=== PATIENT | female | born 1960 | race Caucasian/White ===

== ENCOUNTER 2018-02-04 06:16 | Day surgery (SDC) | payer OTHER ==
[2018-02-03 10:06] LABS: Absolute Lymphocytes (CBC) 3.4 K/uL (0.7-4.9); Absolute Monocytes 0.7 K/uL (0.1-1.3); Absolute Neutrophil 6.9 K/uL (1.8-8.0); Eosinophils % 1.6 % (0-4.4); Lymphocytes % 30.1 % (15.3-44.8); MCH 30.4 pg (27.0-35.0); MCV 89.3 fL (80-100); MPV 8.6 fL (7.6-11.3); Monocytes % 5.9 % (3.3-12.3); RBC Red Blood Cell Count 4.15 M/uL (3.86-4.86)
--- NOTE | 2018-02-03 13:49 | PREOPHP ---
Date of Admission: 02/03/2018 History Of Present Illness: Ms. Sanz is a 57-year-old female, who is admitted [facility] for hysteroscopy and D and C for postmenopausal bleeding. She was 1, para 1-0-0-1, who is status post menopause. She had been on bio-identical injectable hormones until a couple of years ago. This was discontinued because of some bleeding issues, but she has continued to have intermitt ent bleeding since that time. Endometrial biopsy in the office has shown disordered proliferative en dometrium with no evidence of hyperplasia. Because she has continued to bleed, further evaluation wi th hysteroscopy and D and C is scheduled. Past Medical History: Includes 1 prior delivery, prior colonoscopy, prior diagnosis of hepatitis A i n 1987. Current Medications: Include Cymbalta 60 mg per day, Adderall 20 mg q.a.m. Allergies: SHE HAS NO KNOWN ALLERGIES. Social History: She does not smoke. Family History: Significant for elevated blood pressure in father and brother. Heart disease in her father and brother. Mother had lung cancer. Review of Systems: She reports no recent cough, cold, recent nausea or vomiting. She denies any breast lumps. She micha es any bowel or bladder issues. Physical Examination: General: Reveals female, in no apparent distress. Neck: Supple without adenopathy or thyromegaly. Lungs: Clear. Cardiac: Regular rate and rhythm without murmurs. Breasts: Without masses. Abdomen: Nontender without organosplenomegaly. Pelvic: Normal female external genitalia. Vaginal shows some mild atrophic changes, small amount of blood. Bimanual, no abnormalities. Extremities: No cyanosis, clubbing, or edema. Impression: Postmenopausal bleeding. Plan: The patient will undergo hysteroscopy and D and C for evaluation of bleeding. Risks are discu ssed and she has signed operative permit in my presence. TONI/NAVNEET Voice ID: [id number]
[2018-02-04] MEDS ORDERED: Ringers Lactate 1,000 ML IV ONE (06:33)
[2018-02-04] MEDS ORDERED: SILVER NITRATE 1 APPL TOP ONE (06:49)
[2018-02-04] MEDS ORDERED: MIDAZOLAM HCL 2 MG/2 ML INJ ONE (07:06)
[2018-02-04] MEDS ORDERED: FENTANYL CITR 100 MCG/2 ML ONE (07:08)
[2018-02-04] MEDS ORDERED: LIDOCAINE 2% MPF 5 ML VIAL ONE (07:08)
[2018-02-04] MEDS ORDERED: PROPOFOL 200 MG/20 ML VIAL IV ONE (07:08)
[2018-02-04] MEDS ORDERED: KETOROLAC 30 MG/ML INJ ONE (07:32)
--- NOTE | 2018-02-04 07:57 | P.BOP ---
Preoperative diagnosis: Post menopausal bleeding Postoperative diagnosis: same, endometrial polyp Primary procedure: hysteroscopy, polyp removal, D&C Estimated blood loss: Less than 10ml Findings: endometrial polyp Anesthesia: General Complications: None Transferred to: Recovery Room
--- NOTE | 2018-02-04 19:34 | DS ---
Date of Discharge: 02/04/2018 Final Hospital Discharge Diagnosis: Postmenopausal bleeding. Complications: None. Procedures: Hysteroscopy, excision of endometrial polyps, curettage of uterine endometrium. Hospital Course: The patient is a 57-year-old female, admitted with postmenopausal bleedin g with a benign outpatient endometrial biopsy. She underwent hysteroscopy and curettage of the endom etrium, which revealed probable endometrial polyps with the pathology report pending. The patient wa s dismissed to be seen back in my office in 2 weeks with usual post D and C activity restrictions. L ab work obtained included an admission hemoglobin and hematocrit of 12.6 and 37.0. TONI/NAVNEET Voice ID: [id number] Report ID: [id number]
--- NOTE | 2018-02-04 19:34 | OP ---
Date of Procedure: 02/04/2018 Surgeon: Dionicio Woods MD Anesthesiologist: Diony Godfrey CRNA and Dr. Yogi Lebron. Preoperative Diagnosis: Postmenopausal bleeding. Postoperative Diagnosis: Postmenopausal bleeding plus endometrial polyp. Procedure: Hysteroscopy, endometrial polyp removal, dilatation and curettage of uterine endometrium. Description Of Procedure: After satisfactory level of general anesthesia was obtained, the patient w as prepped and draped in the usual fashion for vaginal surgery. A bivalve speculum was placed in the vagina, cervix visualized and grasped with single-tooth tenaculum. Hysteroscope was introduced. Vi sualization revealed with a few adhesions, but also multiple polyps. These were excised followed by exploration with forceps, removal of tissue and with a curettage of the endometrium with Sherrell curet te. The patient was then awakened, taken to recovery room in satisfactory condition. Estimated Total Blood Loss: Less than 10 mL. TONI/NAVNEET Voice ID: [id number] Report ID: [id number]
== END 2018-02-04 09:16 | disposition home or self-care (01) ==
LOC: OR 06:16
PROVIDERS: ATTEND Specialist
PROC: 0UB98ZX Excision of Uterus, Via Natural or Artificial Opening Endoscopic, Diagnostic (ICD-10-PCS; principal; 2018-02-04 07:30)
DX: N95.0 Postmenopausal bleeding (principal); N84.0 Polyp of corpus uteri; Z80.1 Family history of malignant neoplasm of trachea, bronchus and lung; Z82.49 Family history of ischemic heart disease and other diseases of the circulatory system
CPT/HCPCS: 36415; 85025; 88305; J2250; J3010

== ENCOUNTER 2018-11-18 10:21 | Day surgery (SDC) | payer OTHER ==
[2018-11-15 11:53] LABS: Absolute Lymphocytes (CBC) 2.5 K/uL (0.7-4.9); Absolute Monocytes 0.4 K/uL (0.1-1.3); Absolute Neutrophil 4.3 K/uL (1.8-8.0); Basophils % 0.9 % (0-1.3); Eosinophils % 2.1 % (0-4.4); Hematocrit 37.4 % (36.0-45.0); Lymphocytes % 33.2 % (15.3-44.8); MPV 9.3 fL (7.6-11.3); Monocytes % 5.8 % (3.3-12.3); RBC Red Blood Cell Count 4.16 M/uL (3.86-4.86)
[2018-11-15 11:55] LABS: Urine Appearance CLEAR; Urine Bilirubin NEGATIVE (NEG); Urine Blood NEGATIVE (NEG); Urine Color YELLOW; Urine Glucose NEGATIVE (NEG); Urine Protein NEGATIVE (NEG); Urine Specific Gravity 1.015 (1.005-1.030); Urine Urobilinogen 0.2 mg/dL (0.2-1.0)
[2018-11-15 12:05] LABS: Urine Microscopic Reflex ORDER UMIC
[2018-11-15 12:27] LABS: Urine Bacteria 20-50 /HPF (<20); Urine Culture Reflex Order REFLEXED; Urine RBC <5 /HPF (NONE SEEN)
[~2018-11-18 10:21] MED LIST: IBUPROFEN 200 MG TAB PO ONE
[2018-11-18] MEDS ORDERED: Ringers Lactate 1,000 ML IV ONE ×2 (10:42→14:17)
[2018-11-18] MEDS ORDERED: SCOPOLAMINE HYDROBROMIDE PATCH TD ONE (10:42)
[2018-11-18] MEDS ORDERED: PROPOFOL 200 MG/20 ML VIAL IV ONE (11:02)
[2018-11-18] MEDS ORDERED: ROCURONIUM 50 MG/5 ML VIAL IV ONE (11:03)
[2018-11-18] MEDS ORDERED: GLYCOPYRROLATE 0.2 MG/ML SYR ONE (11:04)
[2018-11-18] MEDS ORDERED: LIDOCAINE 2% MPF 5 ML VIAL ONE (11:05)
[2018-11-18] MEDS ORDERED: FENTANYL CITR 250 MCG/5 ML ONE (11:06)
[2018-11-18] MEDS ORDERED: ONDANSETRON 4 MG/2 ML VIAL ONE (11:09)
[2018-11-18] MEDS ORDERED: NEOSTIGMINE 1 MG/ML -10 ML VIAL ONE (11:10)
[2018-11-18] MEDS ORDERED: DEXAMETHASONE 4 MG/ML VIAL ONE (11:10)
[2018-11-18] MEDS: CEFAZOLIN/SWI 1gm 2 GM/20 ML SYR ONE ×2 (11:18→12:42)
[2018-11-18] MEDS ORDERED: NA CHLORIDE 0.9% 1,000 ML ONE (12:13)
[2018-11-18] MEDS ORDERED: MIDAZOLAM HCL 2 MG/2 ML INJ ONE (12:36)
[2018-11-18] MEDS ORDERED: MORPHINE 10 MG/ML VIAL ONE (13:35)
[2018-11-18] MEDS ORDERED: LABETALOL 20 MG/4ML SYRINGE IV ONE (13:45)
[2018-11-18] MEDS ORDERED: LIDOCAINE 1.5% W/EPI AMP 5 ML ONE (13:53)
[2018-11-18] MEDS ORDERED: MEPERIDINE HCL 25 MG/0.5 ML ONE (16:06)
[2018-11-18] MEDS ORDERED: HYDROCODONE/APAP 5/325 MG TAB ONE (17:00)
[2018-11-18] MEDS ORDERED: IBUPROFEN 200 MG TAB PO ONE (17:00)
[2018-11-18] MEDS ORDERED: IBUPROFEN 400 MG TAB ONE (17:01)
--- NOTE | 2018-11-20 08:27 | OP ---
Date of Procedure: 11/17/2018 Surgeon: Krystyna Engle MD Economic Analyst: Deanne Galindo. Preoperative Diagnoses: Postmenopausal bleeding, fibroids, leiomyomata, and right Bartholin's gland cyst. Postoperative Diagnoses: Postmenopausal bleeding, fibroids, leiomyomata, right Bartholin's gland cys t, and right Bartholin's gland chronic abscess. Procedures Performed: 1.Total laparoscopic hysterectomy, bilateral salpingo-oophorectomy, and pelvic washings. 2.Right Bartholin's gland drainage and irrigation with marsupialization and biopsy. Anesthesia: General. Estimated Blood Loss: Minimal. Specimens: Uterus, bilateral tubes, and ovaries, pelvic washings, and right Bartholin's gland cyst w all. Complications: None Drains: None. Condition: Stable. Findings: Right Bartholin's gland was enlarged. On incision, there was purulent drainage that was d rained; however, there was no surrounding erythema or induration representing a chronic cyst with pur ulent material. Other than the sigmoid adhesions, just at the level of the infundibulopelvic ligament below the natur al attachment of the sigmoid to the lateral wall and the pelvic brim. No other abnormalities were se en in the pelvic cavity. The uterus was enlarged, multifibroid in nature. Both tubes and ovaries we re unremarkable. The patient is a 58-year-old, who was referred to me by Dr. Woods for uterine fibroids. She had her last menstrual period in 2012. She was evaluated and sampled for bleeding about 3 years ago. Th en 3 years later in 2018, she had another episode of bleeding where she had hysteroscopy, polypectomy , and D and C. Negative pathology for atypia or malignancy. She was found to have uterine fibroids. No other etiology was found since she had recurrent postmenopausal bleeding again over the past 2 y ears. She was referred for a hysterectomy. The right Bartholin's gland cyst was causing bulge symptoms, and therefore the patient wanted to take care of this. It was significant, about 4 to 5 cm in size. She was consented for a total laparoscopic hysterectomy, bilateral salpingo-oophorectomy, and pelvic washings. Repeat sampling was not performed since this was sampled 10 months ago. Description Of Procedure: After consenting the patient appropriately, she was brought to the OR, and 2 g of Ancef were given. She was placed in a supine fashion on the operating table. After general anesthesia was given, she was placed in a dorsal lithotomy position using Xu stirrups. Arms were tucked by the side. Time-out done, SCDs started, and thigh-high stockings were placed. Pelvic exam performed. Uterus found to be multifibroid, about 8 to 10 weeks' size. No adnexal masses were noted . The Bartholin's gland cyst was noted as above. It was more into the labial side rather than to the p osterior-inferior aspect. Abdomen, vulva, vagina, and perineum were prepped and draped in a sterile fashion. Young was placed to drain the bladder and cysto tubing was attached to a bag that emptied 300 mL for retrograde fillin g, and this was placed on the floor for drainage. A large VCare was introduced into the uterus and f ixed in place. This area was then draped. A 1 cm infraumbilical incision was made with a scalpel using the open laparoscopy technique. Fascia was incised and tagged on both sides. S retractor was placed into the vaginal cavity after it was bl untly entered. After the Krista was fixed in place, the site of entry was checked and was unremarkab le. Upper abdominal surface was completely unremarkable as well. The patient was placed in a Trende [place] position. The omentum was unremarkable. Uterus was multifibroid. Both ovaries and tubes we re normal. Posterior cul-de-sac was free. Both ureters were traced from the pelvic brim to the uret ade tunnel and there was no distortion. A 10 mm suprapubic and 5 mm left lower quadrant ports were placed under direct vision. Pelvic washings were performed and handed off for permanent pathology af ter survey was completed. Then, started the hysterectomy. The left round ligament was taken down, a nd the anterior broad ligament was opened up all the way to the opposite side, creating a bladder fla p. Then, the mesosalpinx tube and utero-ovarian ligament were taken down. Posterior broad ligament was opened up all the way to the left uterosacral broad ligament, taken down, and the vessels skeleto nized. On the opposite side, a similar dissection was performed, and once the bladder flap was conne cted, the VCare cup was well visualized. Monopolar was used to open the vesicovaginal space and diss ect the bladder inferiorly. The vessels on both sides were isolated, and medially incision was made with a monopolar to create a window, and then bipolar LigaSure was used for taking down the uterine artery and vein, and the cardi nal ligaments, and the descending branches. Once all these were taken down on the right side, then t he left side similar dissection was performed without any problems. Then, circumferential colpotomy with a monopolar hook blade. The specimen was detached and pulled out through the vagina. There was some difficulty fitting the uterus through the vagina gently. It was manipulated and brought out. Vaginal occluder bulb was placed. The vagina was closed with 0 Vicryl and 5-0 interrupted sutures, 2 simple at both corners, and 3 [id number] in the middle including the uterosacral distal part t hat was from the rectovaginal septum and the posterior vaginal epithelial lining, and then anteriorly the vaginal epithelial lining in the precervical fascia. All the stitches were tied. The re was excellent support as well as closure. No evidence of any electrical, mechanical, or thermal i njury to the ureters. The tubes and ovaries were removed with the help of the LigaSure, and retrieve d through the suprapubic port. Thorough irrigation and suction were performed, and hemostasis was se cured completely. The gas was desufflated, all the trocars were pulled, and the abdominal gas was pushed out through th e Krista. Krista was removed. The 0 Vicryl sutures on each side were tied together to close the inc ision at the umbilicus, and inferiorly a simple suprapubic stitch was placed to the fascia with 0 Matt ryl to close this defect. All the skin incisions were closed with 4-0 Vicryl interrupted. After draping the Bartholin's gland appropriately, the vaginal occluder bulb and the Young were remov ed. Then, 1% lidocaine mixed with 1:200,000 epinephrine was taken and 10 cc was injected in the supe rior and inferior plane. I could not make this incision on the inner aspect of the labia minora comp letely close to the hymenal opening; however, the Bartholin's gland opening seemed to be displaced so mewhat laterally due to the expansion of the Bartholin's gland cyst in the way that I did it. So, th e gland opening was extended superiorly and inferiorly after the lip was injected. Then, once the cy st wall was reached, by taking down all the layers underneath, about 5 cm incision was made. The cys t wall was incised vertically with a 15 blade, and purulent drainage was seen, and this was drained o ut completely. It was definitely a Bartholin's gland cyst. The lining was sampled with the help of Metzenbaum scissors. A 3-0 Vicryl interrupted were placed in a circumferential fashion marsupializin g the gland to the skin, and the inferior most part subcutaneous tissues were closed together, and th en the marsupialization was completed with interrupted sutures. The vagina was packed with the help of quarter-inch Nu Gauze. Bandage was placed. Young was removed. Instrument, needle, and sponge co unts were done and were correct at the end of the case. The patient tolerated the procedure well. S he will follow up with me in 1 week. LEE ANN/NAVNEET Voice ID: [id number] Report ID: [id number]
== END 2018-11-18 19:30 | disposition home or self-care (01) ==
LOC: OR 10:21
PROVIDERS: ATTEND Obstetrics & Gynecology
PROC: 0UT74ZZ Resection of Bilateral Fallopian Tubes, Percutaneous Endoscopic Approach (ICD-10-PCS; 2018-11-18)
PROC: 0U9L0ZZ Drainage of Vestibular Gland, Open Approach (ICD-10-PCS; 2018-11-18)
PROC: 0UTC4ZZ Resection of Cervix, Percutaneous Endoscopic Approach (ICD-10-PCS; 2018-11-18)
PROC: 0UT94ZZ Resection of Uterus, Percutaneous Endoscopic Approach (ICD-10-PCS; principal; 2018-11-18 11:30)
PROC: 0UT24ZZ Resection of Bilateral Ovaries, Percutaneous Endoscopic Approach (ICD-10-PCS; 2018-11-18 11:30)
DX: N95.0 Postmenopausal bleeding (principal); D25.9 Leiomyoma of uterus, unspecified; N72 Inflammatory disease of cervix uteri; N83.8 Other noninflammatory disorders of ovary, fallopian tube and broad ligament; N75.0 Cyst of Bartholin's gland; I10 Essential (primary) hypertension; F33.2 Major depressive disorder, recurrent severe without psychotic features; F41.9 Anxiety disorder, unspecified; Z79.899 Other long term (current) drug therapy
CPT/HCPCS: 36415; 81003; 81015; 85025; 86850; 86900; 86901; 87086; 87088; 88108; 88304; 88305; 88307; J0690; J2001; J2175; J2250; J2405; J2704; J2710; J3010; J7030